=== PATIENT | female | born 1955 | race Caucasian/White ===

== ENCOUNTER → 2016-05-29 | Outpatient (CLI) | payer BC ==
[~2016-05-29] MED LIST: ACET-2890 PO; ALBU8.5H INH; ALLO300T2 PO; ALPR0.5T8 PO; AMLO10TA2 PO; CALC-946 PO; CALC600T12 PO; CYCL-375 PO; IPRA4AER PO; MAGN400T31 PO; OXYC5TAB84 PO; POTA99TA21 PO; PROC10TA PO; SIMV20TA6 PO; SULF1TAB42 PO
--- NOTE | 2016-05-29 09:55 | DI ---
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 There is no pleural effusion or pneumothorax. Right IJ port The heart size, mediastinal contours and pulmonary vascularity are within normal limits. Cervical spine fusion hardware. IMPRESSION: No acute cardiopulmonary disease. .
== END ==
LOC: IMA 09:21
PROVIDERS: ATTEND Internal Medicine Medical Oncology
DX: C34.31 Malignant neoplasm of lower lobe, right bronchus or lung (principal); R06.02 Shortness of breath

== ENCOUNTER → 2016-06-14 | Outpatient (CLI) | payer BC ==
--- NOTE | 2016-06-14 12:03 | DI ---
Indication: ITS.REASON: C34.31 LUNG CA SMALL CELL PROCEDURE: PET/CT SKULL TO THIGH SUBSEQUE: Encounter: Subsequent Comparison: CT chest, abdomen and pelvis dated April 24, 2016 and PET/CT dated March 20, 2016 Technique: 14.8 mCi of F-18 FDG was administered intravenously via the left hand. Approximately 60 minutes later 3D PET/CT imaging was performed from the skull base through the mid thighs. The CT images are for attenuation correction purposes only. Findings: No areas of abnormal tracer uptake seen within the skull base or neck. No axillary adenopathy. The right lower lobe infrahilar area mass has significantly decreased in size and metabolic activity. There is essentially no measurable mass remaining. Right hilar adenopathy and right paratracheal lymph nodes have improved with some residual hypermetabolism. Discrete nodes are difficult to measure but there is an area of increased uptake in the subcarinal region with an SUV max of 3.8 and an additional area of uptake in the right hilum with an SUV max of 3.1. Expected myocardial uptake. Liver uptake appears homogeneous. Expected genitourinary and bowel uptake. No areas of abnormal skeletal uptake seen. Impression: Response to therapy with near complete interval resolution of the right infrahilar mass and significant decrease in right mediastinal adenopathy. No new or worsening metastatic disease seen. .
== END ==
LOC: IMA 08:04
PROVIDERS: ATTEND Internal Medicine Medical Oncology
DX: C34.31 Malignant neoplasm of lower lobe, right bronchus or lung (principal)
CPT/HCPCS: 78815; A9552